=== PATIENT | male | born 1940 | race Caucasian/White ===

== ENCOUNTER → 2023-09-29 06:26 | Outpatient (REF) | payer MEDICARE, BC, SELFPAY ==
[2023-09-29 10:41] LABS: PSA, Total - Diagnostic 0.51 ng/ml (0.0-4.0)
== END ==
LOC: HWLAB 06:26
PROVIDERS: ATTENDING PHYSICIAN Specialist; FAMILY PHYSICIAN Student in an Organized Health Care Education/Training Program
DX: R97.20 Elevated prostate specific antigen [PSA] (principal)
CPT/HCPCS: 36415; 84153

== ENCOUNTER 2024-02-04 08:58 | Outpatient (REF) | payer MEDICARE, BC, SELFPAY ==
[2024-02-04] VITALS (7 sets, daily range): BP systolic 51–137; BP diastolic 68–76
== END 2024-02-04 13:50 | disposition home or self-care (01) ==
LOC: RAD 08:58
PROVIDERS: ATTENDING PHYSICIAN Orthopaedic Surgery Hand Surgery; FAMILY PHYSICIAN Student in an Organized Health Care Education/Training Program
DX: M25.512 Pain in left shoulder (principal); M54.12 Radiculopathy, cervical region
CPT/HCPCS: 62302; 72125

== ENCOUNTER 2024-02-24 12:10 | Inpatient (IN) | payer MEDICARE, BC, SELFPAY ==
[2024-02-24] VITALS (14 sets, daily range): BP systolic 116–165; BP diastolic 63–88; BMI 24.0; BMI 24.1
--- NOTE | 2024-02-24 08:57 | ED.GENMED ---
History of Present Illness
General
Chief Complaint: Abdominal Pain
Source: patient and ambulance crew
Nursing documentation reviewed up to this point in time: agreed with
History of Present Illness
History of Present Illness:
The patient is a 83-year-old man who arrives by ambulance with complaints of 2 to 3 hours of severe mid abdominal pain radiating into his back. Patient denies chest pain or shortness of breath. He denies fevers and chills. He denies difficulty
urinating. Patient reports he did normal bowel movement earlier today.
Past History
Past History
ED Past Medical History: HTN
ED Past Surgical History: Other (Hernia repair)
Social History
Tobacco: Non-smoker
Alcohol: None
Drug: None
Personal: Other
Living: other
Employment: Other
Family History
Family History: Other
Review of Systems
Review of Systems
Allergies reviewed?: Yes
Other source history: ambulance crew
All Other Systems: ROS reviewed and negative except as documented in HPI and ROS
Constitutional: Reports no symptoms
EENT: Reports no symptoms
Respiratory: Reports no symptoms
Cardiac: Reports no symptoms
ABD/GI: Reports abdominal pain
: Reports no symptoms
Musculoskeletal: Reports no symptoms
Skin: Reports no symptoms
Neurological: Reports no symptoms
Endocrine: Reports no symptoms
Hematologic/Lymphatic: Reports no symptoms
Psychiatric: Reports no symptoms
Phy Exam
Physical Exam
Physical Exam:
Physical Exam
General: Patient is conversational but appears extremely uncomfortable. Is moaning in pain
Neck: supple. no meningeal signs. normal psoterior pharynx
Heart: s1/s2 regular rate and rhythm, no murmur. equal radial pulses.
Lungs: no acute respiratory distress. clear bilaterally
Abdomen: Soft, mid abdominal tenderness. No pulsatile mass. Mild rebound and guarding
Neuro: alert and oriented. no focal neurological deficits
Skin: no rash
Psychiatric: well kept. interactive and cooperative
Extremities: no edema. no calf tenderness. negative homans. good distal pulses
Course
Orders/Labs/Results
Orders:
Orders
02/24/24 08:55
Urinalysis Reflex To Culture Urgent
Morphine Sulfate 4 mg IV NOW STA
Ondansetron Injectable [Zofran] 4 mg IV NOW STA
02/24/24 08:59
Complete Blood Count/With Diff Urgent
Comprehensive Metabolic Panel Urgent
Lipase Urgent
Troponin I Urgent
02/24/24 09:01
Electrocardiogram (*1) Urgent
Reason for Study: Abdominal Pain
EKG- Treatment ONCE
02/24/24 09:36
CT Chest/abd/pelvis Angio W/wo Urgent
Comment:
Reason For Exam: abdominal pain radiating into chest
HYDROmorphone [Dilaudid] 0.5 mg IV NOW STA
02/24/24 10:41
0.9% Sodium Chloride 1000 ml [Nss] 1,000 ml IV BOLUS
02/24/24 10:50
HYDROmorphone [Dilaudid] 0.5 mg IV NOW STA
02/24/24 10:53
LDH Urgent
Lactic Acid Urgent
02/24/24 10:58
MetroNIDAZOLE 500 MG/100 ML [Flagyl 500 mg] 100 ml IV NOW
Nursing to Place Non Medication Order As Directed
Physician Order: patient should be NPO
02/24/24 10:59
Vascular Surgery Consult Urgent
Consulting Provider: Steve Whyte III
Was physician already notified: Yes
Reason for consult: celiac artery dissection
02/24/24 11:43
Admit/Transfer Patient As Directed
Co-Sign Provider:
Level of Care: Inpatient admission
Assign to:: IMU- Intermediate Care
Physician / Group: Dr. Jesus Kuhn/Hospitalists
Diagnosis: Ischemic Bowel, Celiac Artery Dissection
Reason for Hospitalization: Ischemic Bowel, Celiac Artery Dissection
Expected length of stay greater than two midnights?: Yes
ELOS- Estimated Length of Stay in days: 4
I certify the patient meets the requirements for IP care: Yes
PRN Pain Medication Management As Directed
May give lesser potent ordered pain med per pt: Yes
preference::
Protocol:: Medication orders for pain may be administered in a
manner that supports deferring to patient preference
when the pt is:
- Requesting an ordered lesser potent pain medication.
Least to most potent pain medications are defined
as: acetaminophen < NSAID < tramadol < opioids
(morphine, oxycodone, hydromorphone).
- Requesting a lesser dose of the same medication IF
ORDERED.
- Requesting a less intrusive route of administration
if both routes are prescribed by the provider (PO <
IV).
02/24/24 11:48
Code Status As Directed
Resuscitation Status: Do not resuscitate
Reached after discussion with pt or family/Healthcare POA: Yes
Physician note:: Patient confirmed, at the time of admission on February 24, 2024, that he is DNR.
02/24/24 11:49
DNR Bracelet Application ONCE
02/24/24 11:56
ColoRectal Surgery Consult Routine
Consulting Provider: Garry Shore
Was physician already notified: Yes
Reason for consult: Suspected ischemic bowel
02/24/24 11:58
SURGICAL CONSULT Routine
Consulting Provider: Dale Judge
Was physician already notified: Yes
Reason for consult: Celiac Artery Dissection
02/24/24 12:16
Blood Culture Urgent
MONSERRAT Source: Blood/Venous
Specimen Description:
02/24/24 12:26
Blood Culture Routine
MONSERRAT Source: Blood/Venous
Specimen Description:
02/24/24 18:00
MetroNIDAZOLE 500 MG/100 ML [Flagyl 500 mg] 100 ml IV Q8H
Abnormal Lab Results
02/24/24
08:59
RBC 3.95 L 10^6/uL
(4.70-6.10)
Hct 37.0 L %
(39.0-52.0)
MCH 33.4 H pg
(27.0-31.0)
MPV 10.6 H fL
(7.4-10.4)
Glucose 126 H mg/dl
(70-99)
02/24/24 08:59
02/24/24 08:59
Vital Signs
Initial and Last Documented VS:
Initial Vital Signs
Temp Pulse Resp BP Pulse Ox
97.6 F 80 22 165/82 97
02/24/24 08:53 02/24/24 08:53 02/24/24 08:53 02/24/24 08:53 02/24/24 08:53
Last Documented Vital Signs
Temp Pulse Resp BP Pulse Ox
97.6 F 61 18 144/63 94
02/24/24 08:53 02/24/24 13:03 02/24/24 11:00 02/24/24 13:03 02/24/24 13:03
MDM/Problems Addressed
Differential Diagnosis Includes:
Small bowel obstruction, acute pancreatitis, aortic aneurysm rupture, acute appendicitis
MDM/Problems Addressed:
Patient presents with acute severe abdominal pain
Chronic conditions affecting care: Previous abdomnial surgery
Acute Exacerbation and/or Progression of Chronic Illness:
Given patient has a history of previous abdominal surgery, he is at increased risk of acute small bowel obstruction
Patient is acutely hypertensive, however, he is extremely uncomfortable and in pain.
Acute Exacerbation and/or Progression of Chronic Illness: Previous abdomnial surgery
*Radiology
Radiology exam reviewed: radiology read reviewed
*Pulse Oximetry
Patient hypoxic: no
*EKG
Interpreted by ED Provider?: Yes
Interpretation: abnormal
Comparison EKG: changes noted
Rate: normal
Rhythm: sinus
[place]: normal axis
Interval: normal interval
QRS Pattern: right bundle branch block
Ischemia: non-specific ST changes
*Alumni Coordinator Interpretation
Rate: normal
Interpretation: normal
Rhythm: sinus
*Critical Care Note
Total Time (30-74mins, 75-104mins- exclusive of procedures): 53 min
comment:
53 minutes critical care given to the patient including reviewing his blood work, CT report with radiology, and discussing the case with vascular surgery, the hospitalist and counseling the patient
Data Reviewed
Review of Other/Old Records Reveals: Radiology Studies (CT abdomen pelvis reviewed from 2020 which showed that patient had no abdominal aortic aneurysm seen)
Source: patient and ambulance crew
Patient Management
Discussion with other providers: Hospitalist and Other (Vascular surgery, Dr. Whyte. Dr. Judge from general surgery made aware of patient's condition and CT)
Escalation/DeEscalation of care consider admission/obs:
Vascular surgery came to see the patient at bedside. Decision made to treat conservatively and monitor closely. Patient will be started on IV antibiotics and IV fluids.
ED Attending Note
-
Portions of this chart may have been created with voice recognition software.� Occasional wrong word or��sound alike� substitutions may have occurred due to the inherent limitations of voice recognition software.
Discharge Plan
Departure
Patient Disposition: Admit
Date of Disposition: 02/24/24
Time of Disposition: 10:39
Admit to: Med/Surg
Presentation/result/management discussed w/ accepting MD/DO: Hospitalist
Patient with high blood pressure during this ER visit?: Yes
Condition: Fair
Covid-19: Not Applicable
Discharge Problem:
Acute ischemia of small intestine, Celiac artery dissection
Interventions
Interventions:
*Risk Screen - Suicide Last Done: 02/24/24 08:56
*General Assessment Last Done: 02/24/24 08:56
*Neglect/Abuse Screening Last Done: 02/24/24 08:56
WI-[id number]-[id number] Assessment Last Done: 02/24/24 09:07
[2024-02-24] MEDS: ZOFRAN 4 MG IV (09:01)
[2024-02-24] MEDS: MORPHINE SULFATE 4 MG IV ×2 (09:03→22:43)
[2024-02-24 09:10] LABS: % Basophils 0.2 % (0-2); % Eosinophils 0.5 % (0-6); % Immature Granulocytes 0.2 % (0-0.5); % Lymphocytes 29.4 % (20.5-51.1); % Monocytes 5.4 % (1.7-9.3); % Neutrophils 64.3 % (42.2-75.2); Absolute Lymphocytes 1.8 10^3/uL (1.2-3.4); Absolute Monocytes 0.3 10^3/uL (0.1-0.6); Hemoglobin 13.2 g/dL (13.0-18.0); Mean Corp Hgb Conc. 35.7 g/dL (33.0-37.0); Mean Corpuscular Hgb 33.4 pg (27.0-31.0); Mean Corpuscular Volume 93.7 fL (80.0-94.0); Mean Platelet Volume 10.6 fL (7.4-10.4); Nucleated Red Blood Cells % 0 % (-); Platelet Count 168 10^3/uL (130-400); Red Blood Cell Count 3.95 10^6/uL (4.70-6.10); Red Cell Dist. Width 13.5 % (11.5-14.5); White Blood Cell Count 6.2 10^3/uL (4.8-10.8)
[2024-02-24 09:24] LABS: ALT (SGPT) 26 U/L (0-50); AST (SGOT) 31 U/L (17-59); Albumin 4.3 g/dl (3.5-5.0); Alkaline Phosphatase 58 U/L (38-126); Blood Urea Nitrogen 19 mg/dl (9-20); Calcium 9.6 mg/dl (8.4-10.2); Carbon Dioxide 26 mmol/L (22-30); Chloride 105 mmol/L (98-107); Estimated Creatinine Clearance 62 ml/min; Glucose 126 mg/dl (70-99); Lipase 68 U/L (23-300); Potassium 4.1 mmol/L (3.5-5.1); Sodium 137 mmol/L (135-145); Total Bilirubin 1.3 mg/dl (0.2-1.3); Total Protein 7.1 g/dl (6.3-8.2); eGFR > 60.00
[2024-02-24 09:35] LABS: Troponin I < 0.012 ng/ml
[2024-02-24] MEDS: DILAUDID 0.5 MG IV ×2 (10:00→11:00)
[2024-02-24] MEDS: NSS 1000 IV (10:59)
[2024-02-24] MEDS: FLAGYL 500 MG 100 IV ×2 (11:04→17:03)
[2024-02-24 11:13] LABS: LDH 156 U/L (120-246); Lactic Acid 0.8 mmol/L (0.7-2.0)
--- NOTE | 2024-02-24 11:27 | CON.GS ---
Medical History
-
Chief Complaint: Abdominal pain
History of Present Illness:
Patient is a 83 yo M with a PMH of HTN, HLD, BPH, s/p open LEFT inguinal hernia repair as a teenager c/b recurrence s/p robotic repair with mesh by Dr. Ramires in 06/2020. Mr. Murphy presents with acute onset severe epigastric abdominal pain. He
states that shortly after breakfast this morning he acutely developed severe stabbing epigastric abdominal pain radiating to his back. Severity of symptoms and persistence over a few hours prompted presentation to the ED. Currently he states that
his pain is improved with IV pain medications. He denies any nausea or vomiting. She reports passing flatus and had a small little nonbloody bowel movement this morning. Denies any similar episodes of pain or discomfort. He denies any dizziness
or lightheadedness. He denies chest pain or shortness of breath. He states that his blood pressures have been overall well-controlled, though does state that he was recently started on Amlodipine by his PCP for improved control.
Past Medical History
Past Medical History: HTN, Hypercholesterolemia and Other (BPH)
Past Surgical History: Hernia Repair (Open LIH c/b recurrence s/p robotic repair with mesh in 06/[address] Ramires)
Social History
Tobacco: Non-Smoker
Alcohol: Occasional (2-3x per week)
Drug: None
Personal:
Living: With Family
Family History
Family History: Reviewed & Noncontributory
Allergies / Home Medications
Allergy/AdvReac Type Severity Reaction Status Date / Time
Penicillins Allergy Rash Verified 02/24/24 08:52
�Medication �Instructions �Recorded �Confirmed �Type
aspirin 81 mg tablet,delayed 81 mg PO DAILY Blood clot 08/05/12 02/24/24 History
release prevention/tx
finasteride 5 mg tablet 5 mg PO DAILY Urinary issue 08/05/12 02/24/24 History
lisinopril 20 mg tablet 20 mg PO DAILY Blood pressure 08/05/12 02/24/24 History
simvastatin 20 mg tablet 20 mg PO HS High cholesterol 08/05/12 02/24/24 History
cyanocobalamin (vitamin B-12) 1,000 mcg PO Q48H Supplement 01/08/20 02/24/24 History
1,000 mcg tablet
acetaminophen 325 mg tablet 650 mg PO Q6HPRN PRN mild pain 02/04/24 02/24/24 History
(Tylenol)
amlodipine 5 mg tablet 5 mg PO DAILY 02/04/24 02/24/24 History
Review of Systems
-
A 10 point review of systems was completed, and was negative except as per HPI.
Physical Exam
Vital Signs
Temp Pulse Resp BP Pulse Ox
97.6 F 65 18 128/70 97
02/24/24 08:53 02/24/24 11:00 02/24/24 11:00 02/24/24 11:00 02/24/24 11:00
02/23/24 02/24/24 02/25/24
06:59 06:59 06:59
Actual Weight 71.5 kg
Body Mass Index (BMI) 24.0
Lab Results
02/24/24 08:59
02/24/24 08:59
WBC 6.2 10^3/uL (4.8-10.8) 02/24/24 08:59
Hgb 13.2 g/dL (13.0-18.0) 02/24/24 08:59
Hct 37.0 % (39.0-52.0) L 02/24/24 08:59
Plt Count 168 10^3/uL (130-400) 02/24/24 08:59
Abs Immat Gran (auto) 0.0 10^3/uL (0-0.05) 02/24/24 08:59
Neutrophils % 64.3 % (42.2-75.2) 02/24/24 08:59
Physical Exam
General: Well Developed, Well Nourished and No Apparent Distress
HEENT: Normocephalic and Anicteric
Respiratory: Non Labored Respirations
Cardiac: Regular Rhythm
GI: Soft, Non Distended, Tender (Epigastrium), Incisions (Well healed) and Other (Non-peritoneal (no rebound, guarding, or tenderness with percussion))
Skin: Warm and Dry
Neuro: Nonfocal/Grossly Intact
Data Reviewed
-
CT Scan: Image Personally Visualized and interpreted and Report Reviewed by me
Labs: Labs Reviewed by me
Assessment / Plan
-
Patient is an 83 yo M p/w acute onset severe epigastric abdominal pain
Given the location and clinical history most likely this is related to his celiac artery dissection. Vascular surgery consult noted. Mild dissection with no inhibited flow distally. Distribution of small bowel should not be affected by vascular
compromise to the celiac artery. SMA appears to be widely patent and without embolus, stenosis, or dissection. Small bowel demonstrates wall thickening and inflammatory stranding without pneumatosis or free air. Abdominal exam without diffuse
peritonitis. Hemodynamically stable, afebrile, normal WBC and lactate. Recommend medical management at this time with NPO, IVF, and Zosyn for translocation prophylaxis. Serial abdominal exams. If any clinical deterioration then would recommend
surgical exploration; diagnostic laparoscopy, possible exploratory laparotomy, with possible bowel resection. All questions answered.
-- NPO, IVF
-- Zosyn
-- Serial abdominal exams, close monitoring in IMU
-- Vascular Surgery consult noted
--- NOTE | 2024-02-24 11:35 | CON.VAS ---
Consultation
Consultation Request
Date/Time Consultation Requested: February 24, 2024 AM
Date/Time Consultation Performed: February 24, 2024 11:15 AM
Requesting Provider: ED
Performing Provider: Dr. Whyte
Reason for Consultation: Abdominal Pain
Medical History
-
Chief Complaint: Severe Epigastric ABD Pain
History of Present Illness:
83 yo Male with relevant PMHx of HTN and Hypercholesterolemia and notable PSHx of Open L-Inguinal hernia repair with reoccurrence and secondary robotic repair, who presented to the ED today with acute onset of severe Focal Epigastric Abdominal pain
that radiates posteriorly straight to his back, at the level of the epigastrium. Pt states pain started suddenly around breakfast this morning and has persisted since, prompting him to present to the ED today. At this time, pt reports mild
improvement of his pain following IV pain medications, when compared to the initial presentation at the onset.
Upon ROS pt denies any previous episodes of similar pain or discomfort in the past, no recent systemic symptoms, traumas, Chest pain/discomfort, SOB, previous bloody BM's or Symptoms at this time.
Past Medical History
Past Medical History: HTN
Allergies / Home Medications
Allergy/AdvReac Type Severity Reaction Status Date / Time
Penicillins Allergy Rash Verified 02/24/24 08:52
�Medication �Instructions �Recorded �Confirmed �Type
aspirin 81 mg tablet,delayed 81 mg PO DAILY Blood clot 08/05/12 02/24/24 History
release prevention/tx
finasteride 5 mg tablet 5 mg PO DAILY Urinary issue 08/05/12 02/24/24 History
lisinopril 20 mg tablet 20 mg PO DAILY Blood pressure 08/05/12 02/24/24 History
simvastatin 20 mg tablet 20 mg PO HS High cholesterol 08/05/12 02/24/24 History
cyanocobalamin (vitamin B-12) 1,000 mcg PO Q48H Supplement 01/08/20 02/24/24 History
1,000 mcg tablet
acetaminophen 325 mg tablet 650 mg PO Q6HPRN PRN mild pain 02/04/24 02/24/24 History
(Tylenol)
amlodipine 5 mg tablet 5 mg PO DAILY 02/04/24 02/24/24 History
Review of Systems
-
History Source: Patient
All other systems: Negative unless noted
Constitutional: Reports No Symptoms
EENT: Reports No Symptoms
Respiratory: Reports No Symptoms
Cardiac: Reports No Symptoms
Vascular: Reports Other (Focal Epigastric Abdominal pain radiating towards back)
Abdomen/GI: Reports Abdominal Pain, Pain and Other (Focal Epigastric Abdominal pain radiating towards back)
Physical Exam
Vital Signs
Temp Pulse Resp BP Pulse Ox
36.4 C 65 18 128/70 97
02/24/24 08:53 02/24/24 11:00 02/24/24 11:00 02/24/24 11:00 02/24/24 11:00
Lab Results
02/24/24 08:59
02/24/24 08:59
Troponin I < 0.012 ng/ml 02/24/24 08:59
Physical Exam
General: Well Developed, Well Nourished, Pain and Other (Mildly Uncomfortable appareance)
HEENT: Normocephalic and Anicteric
Respiratory: Non Labored Respirations
GI: Soft, Non Distended and Tender (siginificant TTP Localized to the Epigastrium area)
Skin: Warm
Neuro: Awake, Alert, Oriented and AO x 3
Psych: Other (Milddly Uncomfortable appereance)
Assessment / Plan
-
ASSESSMENT:
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
PLAN:
Conservative/medical management of celiac artery dissection recommended from V.S. standpoint
NPO
Continue supportive IV fluids for Hydration
Management/Control of BP
Anti-PLT Therapy / 81mg ASA
Watchful waiting and close monitoring
Data Reviewed
-
CT Scan: Image Personally Visualized and interpreted, Discussed with Physician and Discussed with Patient
Critical Care Time (in minutes): ~30 min
Total Time Spent with Patient (in minutes): ~15 min
[2024-02-24] MEDS: MAXIPIME 2000 MG IV ×2 (12:29→22:43)
[2024-02-24] MEDS: STERILE WATER FOR INJECTION 10 ML IV ×2 (12:29→22:43)
--- NOTE | 2024-02-24 13:36 | HPS.HSE ---
Family Physician
-
Family Physician: Marianna Villar PA-C
Chief Complaint
-
Abdominal Pain
History of Present Illness
83 y/o male with past medical history of hypertension and hyperlipidemia, presented with abdominal pain this morning after eating breakfast. Patient said he developed mild pain in his upper abdomen which then got progressively worse and radiated to
his back. His last bowel movement was this morning and he denied any fever, nausea, vomiting, dizziness or any other symptoms.
Medical History
Past Medical History
Past Medical History: Reports Other (As per HPI above)
Past Surgical History: Reports Orthopedic and Other (Eye cataract surgery)
Social History
Tobacco: Former Smoker
Alcohol: Occasional
Drug: None
Family History
Family History: Other (Heart Disease. Alzheimer's Dementia.)
Allergies / Home Medications
Allergies reflects when Allergies were last updated in [facility].
Home Medications with original date entered in [facility]
Allergy/Medication List:
Allergies
Allergy/AdvReac Type Severity Reaction Status Date / Time
Penicillins Allergy Rash as a Verified 02/24/24 12:55
child -
tolerated
cefazolin
Home Medications
aspirin 81 mg tablet,delayed release 81 mg PO DAILY Blood clot prevention/tx 08/05/12
finasteride 5 mg tablet 5 mg PO DAILY prostate issue 08/05/12
lisinopril 20 mg tablet 20 mg PO DAILY Blood pressure 08/05/12
simvastatin 20 mg tablet 20 mg PO HS High cholesterol 08/05/12
cyanocobalamin (vitamin B-12) 1,000 mcg tablet 1,000 mcg PO Q48H Supplement 01/08/20
acetaminophen 325 mg tablet (Tylenol) 650 mg PO Q6HPRN PRN mild pain 02/04/24
amlodipine 5 mg tablet 5 mg PO DAILY Blood Pressure 02/04/24
Review of Systems
-
A 12 point ROS was completed and negative except as noted: Yes
Physical Exam
Vital Signs
Vital Signs
Temp Pulse Resp BP Pulse Ox
97.6 F 61 18 144/63 94
02/24/24 08:53 02/24/24 13:03 02/24/24 11:00 02/24/24 13:03 02/24/24 13:03
Physical Exam
General: No Apparent Distress
HEENT: NormoCephalic
Respiratory: Clear
Cardiac: S1/S2 and Regular Rhythm
GI: Soft, Normal Bowel Sounds and Tender (epigastric)
Musculoskeletal: No Cyanosis and No Edema
Skin: Warm and Dry
Neuro: Awake, Alert and AO x 3
Psych: Calm and Intact Judgment/Insight
Laboratory Results
-
02/24/24 08:59
02/24/24 08:59
Laboratory Results
Lactic Acid 0.8 mmol/L (0.7-2.0) 02/24/24 10:53
Total Bilirubin 1.3 mg/dl (0.2-1.3) 02/24/24 08:59
AST 31 U/L (17-59) 02/24/24 08:59
ALT 26 U/L (0-50) 02/24/24 08:59
Alkaline Phosphatase 58 U/L (38-126) 02/24/24 08:59
Troponin I < 0.012 ng/ml 02/24/24 08:59
Lipase 68 U/L (23-300) 02/24/24 08:59
Impression/Plan
-
Assessment/Plan
Presentation with Abdominal Pain
Concern for Bowel Ischemia on CT Imaging
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
-Monitor in IMU
-Vascular surgery and colorectal surgery on board, appreciate evaluation and recommendations -- watchful waiting for now
-NPO
-LR IV fluids
-Cefepime and Flagyl
-Blood consent obtained in the ER, in case patient needs a blood transfusion
HTN - monitor, holding all PO meds at this time due to strict NPO
HLD
BPH
Status post open LEFT inguinal hernia repair as a teenager c/b recurrence s/p robotic repair with mesh by Dr. Ramires in 06/2020
DVT PPx: SCDs
Code Status: DNR (confirmed by patient at the time of admission)
[2024-02-24] MEDS: LR 1000 IV (17:04)
--- NOTE | 2024-02-24 21:02 | PTCARENOTE ---
Received pt at change of shift. Drowsy but easily arousable. Pt c/o pain in epigastric area 09/06 but is not consistent. Also c/o pain in left shoulder from known herniated disc that is supposed to be handled outpatient. LR running at 100 ml/hr.
NPO. Able to walk to bathroom with minimal assistance. Now resting in bed with call linton in reach.
[2024-02-24 21:18] LABS: Urine Albumin Negative (Neg - Trace); Urine Bilirubin Negative (Negative); Urine Character Clear (Clear); Urine Color Yellow; Urine Glucose Negative (Negative); Urine Ketone Negative (Negative); Urine Leukocyte Negative (Negative); Urine Nitrite Negative (Negative); Urine Occult Blood Negative (Negative); Urine Urobilinogen Negative (Neg - 1+)
--- NOTE | 2024-02-24 22:30 | PTCARENOTE ---
Pt c/o pain increasing to a 6/10 from 2/10. Diffuse throughout abdomen; tender to palpation. Absent bowel sounds. Notified STAFFING AND SCHEDULING COORDINATOR. STAFFING AND SCHEDULING COORDINATOR at bedside to evaluate patient.
--- NOTE | 2024-02-24 22:39 | W.PN.UPDATE ---
Update Note
Progress Note Update
per nursing patient c/o 01/04 abdominal pain, no bowel sound. Upon visit, patient reports diffused abdominal pain but not worse than initial pain that had him come to the ER and no flatus. Abdomen soft, tender to palpation, no guarding, hypoactive.
Rx Dilaudid for severe and morphine to mild/moderate pain. Nursing to continue to monitor.
[2024-02-25] VITALS (11 sets, daily range): BP systolic 117–145; BP diastolic 56–111
[2024-02-25] MEDS: FLAGYL 500 MG 100 IV ×2 (03:44→10:12)
[2024-02-25] MEDS: LR 1000 IV ×2 (03:45→14:35)
[2024-02-25 05:16] LABS: % Basophils 0.3 % (0-2); % Immature Granulocytes 0.3 % (0-0.5); % Lymphocytes 28.8 % (20.5-51.1); % Monocytes 5.8 % (1.7-9.3); % Neutrophils 63.8 % (42.2-75.2); Absolute Eosinophils 0.1 10^3/uL (0-0.7); Absolute Lymphocytes 1.8 10^3/uL (1.2-3.4); Absolute Monocytes 0.4 10^3/uL (0.1-0.6); Hematocrit 36.4 % (39.0-52.0); Hemoglobin 12.6 g/dL (13.0-18.0); Mean Corp Hgb Conc. 34.6 g/dL (33.0-37.0); Mean Corpuscular Volume 98.1 fL (80.0-94.0); Mean Platelet Volume 10.8 fL (7.4-10.4); Nucleated Red Blood Cells % 0 % (-); Platelet Count 147 10^3/uL (130-400); Red Blood Cell Count 3.71 10^6/uL (4.70-6.10); Red Cell Dist. Width 13.4 % (11.5-14.5); White Blood Cell Count 6.2 10^3/uL (4.8-10.8)
[2024-02-25 06:06] LABS: Blood Urea Nitrogen 13 mg/dl (9-20); Calcium 9.5 mg/dl (8.4-10.2); Carbon Dioxide 26 mmol/L (22-30); Chloride 107 mmol/L (98-107); Estimated Creatinine Clearance 70 ml/min; Glucose 100 mg/dl (70-99); Magnesium 1.6 mg/dl (1.6-2.3); Potassium 4.3 mmol/L (3.5-5.1); Sodium 137 mmol/L (135-145); eGFR > 60.00
--- NOTE | 2024-02-25 07:18 | PTCARENOTE ---
Pt AAOx3, SB on monitor VS WNL no co at this time, pt states he passed gas. Pt walked to BR to brush teeth. NO BS at this time. Remains NPO for poss surgery.
--- NOTE | 2024-02-25 07:37 | CON.CAR ---
Addendum entered and electronically signed by Serafin Jordan MD 02/25/24 15:48:
I saw and examined the patient.
The Varying Exceptional[employer] Teacher's note was reviewed and I agree with the note.
Comment:
GEN: No distress, awake, Ox3
HEENT: supple, anicteric, mmm
LUNGS: CTA, no wheezes/rales
CV: Reg, S1/S2, 1/6 syst LSB, no gallop
ABD: soft, BS+, mild tenderness
EXT: No edema
NEURO: Gross non-focal
SKIN: No rash
Plan:
He has a past medical history of hypertension, hyperlipidemia and BPH who presents with significant epigastric and abdominal pain. 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 This is being treated conservatively for now. On telemetry
the patient was found to have sinus bradycardia with heart rates occasionally in the 40s at night. Baseline heart rate is in the 60s. He overall feels well. He denies any chest pain, shortness of breath, dizziness, lightheadedness or syncope.
Check echocardiogram and TSH. Continue to follow on telemetry.
At this point his sinus bradycardia requires no treatment.
Continue management of celiac artery dissection. BP currently stable
Original Note:
Consultation
Consultation Request
Date/Time Consultation Performed: 02/25/24
Requesting Provider: Dr. Kuhn
Performing Provider: Bouchra Pablo PA-C for Dr. Jordan
Reason for Consultation: bradycardia
Medical History
-
Chief Complaint: abd pain
History of Present Illness:
Patient is an 83 yo M with PMH of HLD, HTN, BPH who presented to due to sudden onset of abd pain yesterday morning. He reports it initially was located near his umbilicus however over the next hour moved upward toward his epigastrum and wrapped
around both sides of his ribs. He came to [facility] for evaluation. 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 Plan at this time is for conservative mgmt as able. Cardiology
consulted as overnight patient noted to have asymptomatic bradycardia with HRs into 40s at times. He reports at baseline his HR is normally in 60s. Last echo from 2019 with normal EF. Denies CP, SOB, palpitations, lightheadedness.
PMH:
HTN
HLD
BPH
Past Medical History
Past Medical History: Other (in HPI)
Social History
Tobacco: Non-Smoker
Alcohol: Occasional
Personal:
Living: With Family
Employment: Retired
Family History
Family History: CAD (MD in father at age 52)
Allergies / Home Medications
Allergy/AdvReac Type Severity Reaction Status Date / Time
Penicillins Allergy Rash as a Verified 02/24/24 12:55
child -
tolerated
cefazolin
�Medication �Instructions �Recorded �Confirmed �Type
aspirin 81 mg tablet,delayed 81 mg PO DAILY Blood clot 08/05/12 02/24/24 History
release prevention/tx
finasteride 5 mg tablet 5 mg PO DAILY prostate issue 08/05/12 02/24/24 History
lisinopril 20 mg tablet 20 mg PO DAILY Blood pressure 08/05/12 02/24/24 History
simvastatin 20 mg tablet 20 mg PO HS High cholesterol 08/05/12 02/24/24 History
cyanocobalamin (vitamin B-12) 1,000 mcg PO Q48H Supplement 01/08/20 02/24/24 History
1,000 mcg tablet
acetaminophen 325 mg tablet 650 mg PO Q6HPRN PRN mild pain 02/04/24 02/24/24 History
(Tylenol)
amlodipine 5 mg tablet 5 mg PO DAILY Blood Pressure 02/04/24 02/24/24 History
Review of Systems
-
History Source: Patient
All other systems: Negative unless noted
Physical Exam
Vital Signs
Temp Pulse Resp BP Pulse Ox
98.2 F 47 12 145/70 96
02/25/24 03:12 02/25/24 06:00 02/25/24 06:00 02/25/24 06:00 02/25/24 06:00
Lab Results
02/25/24 04:49
02/25/24 04:49
Troponin I < 0.012 ng/ml 02/24/24 08:59
Physical Exam
General: No Apparent Distress, Comfortable and Other (younger than stated age)
HEENT: Normocephalic, Anicteric and Moist Mucous Membranes
Respiratory: Clear and Non Labored Respirations
Cardiac: S1/S2 and Regular Rhythm
GI: Soft, Non Tender, Non Distended and Normal Bowel Sounds
Musculoskeletal: No Clubbing, No Cyanosis and Edema (trace of B/L LE)
Skin: Warm and Dry
Neuro: AO x 3
Impression / Plan
-
Primary Road Advisor: last seen by Dr. Rush in 2019
Assessment:
Presentation with abd pain
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
Sinus bradycardia
HTN
HLD
BPH
ECHO 2019: normal EF, normal regional wall motion, MAC, mild MR, mildly dilated aortic root, sinus of valsalva 4.0cm
Plan:
-Patient presents with abd pain and by imaging with evidence of small celiac artery dissection. plan for conservative mgmt per vascular and general surgery at this time
-cardiology consulted due to bradycardia noted on tele overnight. HR at times into 40s
-appears asymptomatic. no pauses or av block noted on review of tele overnight
-last echo from 2019 with results as above. will plan to repeat
-check TSH
-d/w nursing
Data Reviewed
-
EKG: Tracing Personally Visualized and interpreted
CT Scan: Report Reviewed by me
Medical Tests (Nuc Med, Echo etc): Report Reviewed by me
Labs: Labs Reviewed by me
Old Records: Reviewed
--- NOTE | 2024-02-25 09:24 | W.PN.VS ---
Today's Communication / Plan
-
Seen and assessed with Dr. Whyte
Assessment/Plan
-
83-year-old male with celiac artery dissection, abdominal pain(resolved at this time)
Plan:
-Continue medical management
-Follow-up in 1 month with CTA abdomen/pelvis in our office
Subjective Data
-
Date of Service: February 25, 2024
Patient seen at bedside this a.m. Dr. Whyte. Patient states he has no pain at this time.
Objective Data
-
Vital Signs
Temp Pulse Resp BP Pulse Ox
98.2 F 47 12 145/70 96
02/25/24 03:12 02/25/24 06:00 02/25/24 06:00 02/25/24 06:00 02/25/24 06:00
Intake and Output
02/24/24 02/25/24 02/26/24
06:59 06:59 06:59
Intake Total 1300 / 1300
Balance 1300 / 1300
Intake:
IV fluids (Total) 1200 / 1200
IV piggybacks 100 / 100
Other:
Number of approximated MODERATE 2
amounts of urine
Lab Results
02/25/24 04:49
02/25/24 04:49
Calcium 9.5 mg/dl (8.4-10.2) 02/25/24 04:49
Magnesium 1.6 mg/dl (1.6-2.3) 02/25/24 04:49
Total Bilirubin 1.3 mg/dl (0.2-1.3) 02/24/24 08:59
AST 31 U/L (17-59) 02/24/24 08:59
ALT 26 U/L (0-50) 02/24/24 08:59
Alkaline Phosphatase 58 U/L (38-126) 02/24/24 08:59
Total Protein 7.1 g/dl (6.3-8.2) 02/24/24 08:59
Albumin 4.3 g/dl (3.5-5.0) 02/24/24 08:59
Physical Exam
-
AAOx3
No tachypnea
No tachycardia
Abdomen soft, nontender, nondistended, denies pain at this time
Bilateral feet warm and pink
Vital signs stable
[2024-02-25 10:39] LABS: TSH Reflex To Free T4 4.42 uIU/ml (0.47-4.68)
--- NOTE | 2024-02-25 12:05 | W.PN.GS2 ---
Today's Communication / Plan
-
Trial clears
Assessment / Plan
-
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
AFVSS, abd exam benign
Labs unremarkable
Vascular surgery plan is for expectant mgmt
GS plan is the same
Adv to CLD
Serial abd exams
DVT ppx
Defer need for A/C to Vascular Surgery, OK from GS standpoint if needed
Will follow
Subjective Data
-
Date of Service: February 25, 2024
AFVSS, pain resolved, denies n/v
Objective Data
-
Intake and Output
02/24/24 02/25/24 02/26/24
06:59 06:59 06:59
Intake Total 1300 / 1300
Balance 1300 / 1300
Intake:
IV fluids (Total) 1200 / 1200
IV piggybacks 100 / 100
Other:
Number of approximated MODERATE 2 2
amounts of urine
Vital Signs
Temp Pulse Resp BP Pulse Ox
97.6 F 47 12 145/70 96
02/25/24 07:31 02/25/24 06:00 02/25/24 06:00 02/25/24 06:00 02/25/24 06:00
Lab Results
02/25/24 04:49
02/25/24 04:49
Calcium 9.5 mg/dl (8.4-10.2) 02/25/24 04:49
Magnesium 1.6 mg/dl (1.6-2.3) 02/25/24 04:49
Total Bilirubin 1.3 mg/dl (0.2-1.3) 02/24/24 08:59
AST 31 U/L (17-59) 02/24/24 08:59
ALT 26 U/L (0-50) 02/24/24 08:59
Alkaline Phosphatase 58 U/L (38-126) 02/24/24 08:59
Total Protein 7.1 g/dl (6.3-8.2) 02/24/24 08:59
Albumin 4.3 g/dl (3.5-5.0) 02/24/24 08:59
Physical Exam
-
Gen: NAD, nontoxic
Abd: soft, nt, nd
[2024-02-25] MEDS: MAXIPIME 2000 MG IV (12:44)
[2024-02-25] MEDS: STERILE WATER FOR INJECTION 10 ML IV (12:45)
--- NOTE | 2024-02-25 13:19 | PTCARENOTE ---
Pt tolerating water and hot tea, also had small BM and gas
--- NOTE | 2024-02-25 16:03 | W.PN.HOSP.TC ---
Today's Communication/Plan
-
Transfer to tele
Stop antibiotics
PT/OT
If patient remains stable going into tomorrow and can tolerate an advanced diet tomorrow, then can possibly discharge tomorrow
Assessment / Plan
Assessment / Plan
Physical Exam
General: No Apparent Distress
HEENT: Normocephalic
Respiratory: Clear to Auscultation Bilaterally
Cardiac: S1/S2 and Regular Rhythm
GI: Soft, Normal Bowel Sounds and Minimally Tender (epigastric)
Musculoskeletal: No Cyanosis and No Edema
Skin: Warm and Dry
Neuro: Awake, Alert and AO x 3
Psych: Calm and Intact Judgment/Insight

Assessment/Plan
Presentation with Abdominal Pain
Concern for Bowel Ischemia on CT Imaging
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
-Transfer to tele
-Vascular surgery and colorectal surgery on board, appreciate evaluation and recommendations -- watchful waiting for now
-Clear Liquids Diet for now, as per surgery
-LR IV fluids
-Discussed on 02/25/24 with vascular surgery and general surgery regarding need for antibiotics and from their standpoints, there is no need for antibiotics. Discontinued Cefepime and Flagyl.
-Okay to do Aspirin as per vascular surgery
-Blood consent obtained in the ER, in case patient needed a blood transfusion
Sinus Bradycardia
-Baseline heart rate in the 60s, but was in the 40s on 02/24/24
-Continue cardiac monitoring/telemetry monitoring in IMU
-Echo
-TSH
-Appreciate cardiology
-Follow-up with cardiology outpatient
HTN - Resume home medications
HLD
BPH
Status post open LEFT inguinal hernia repair as a teenager c/b recurrence s/p robotic repair with mesh by Dr. Ramires in 06/2020
DVT PPx: SCDs
Code Status: DNR (confirmed by patient at the time of admission)
Anticipated Discharge: Within 24 hours
Subjective/Interval History
-
Date of Service: February 25, 2024
Patient was seen and examined. He denied any pain and reported feeling better.
Objective Data
-
Labs:
Laboratory Results
02/25/24
04:49
WBC 6.2
Hgb 12.6 L
Hct 36.4 L
Plt Count 147
Sodium 137
Potassium 4.3
Chloride 107
Carbon Dioxide 26
BUN 13
Creatinine 0.8
Glucose 100 H
Calcium 9.5
Vital Signs:
Vital Signs
Temp Pulse Resp BP Pulse Ox
98.5 F 72 12 126/78 98
02/25/24 11:11 02/25/24 12:00 02/25/24 12:00 02/25/24 12:00 02/25/24 12:00
I&O
02/24/24 02/25/24 02/26/24
06:59 06:59 06:59
Intake Total 1300 / 1300
Balance 1300 / 1300
--- NOTE | 2024-02-25 16:09 | CM ---
Patient with Dx abdominal pain, acute celiac artery dissection. Room air. Clear liquids. Receiving IVF, IV Abx.
Met with patient and Michaela;
the patient resides with his in a split level house with 3 [address] and 6 + [address]
The patient has been independent in ADLs and ambulation.
He states he has been having neck and shoulder pain with restricted ROM of affected arm, and stated he is scheduled for an outpatient epidural injection on Thursday 03/[address] Kenny.
The patient has no DME.
Prior [facility].
No prior SNF.
PCP - Marianna Villar
Pharmacy - [facility]
No CM d/c needs identified.
Plan home.
[2024-02-25] MEDS: NORVASC 5 MG PO (16:53)
[2024-02-25] MEDS: ZESTRIL 20 MG PO (16:54)
[2024-02-25] MEDS: PROSCAR 5 MG PO (16:54)
[2024-02-25] MEDS: ASPIR LOW (ENTERIC COATED) 81 MG PO (16:54)
[2024-02-25] MEDS: LIPITOR 10 MG PO (20:51)
[2024-02-26] VITALS (8 sets, daily range): BP systolic 90–141; BP diastolic 46–95
[2024-02-26] MEDS: LR 1000 IV (02:28)
--- NOTE | 2024-02-26 03:28 | PTCARENOTE ---
Pt AAOx3, SR-SB on monitor. Pt able to ambulate to BSC to void throughout the night with assist x1. Denies pain, but does grimace and groan when getting into bed, pt states d/t L shoulder. Hypoactive BS, but pt states he is able to pass gas.
[2024-02-26 04:35] LABS: % Basophils 0.2 % (0-2); % Eosinophils 0.6 % (0-6); % Immature Granulocytes 0.2 % (0-0.5); % Lymphocytes 25.2 % (20.5-51.1); % Monocytes 6.8 % (1.7-9.3); Absolute Lymphocytes 1.6 10^3/uL (1.2-3.4); Absolute Monocytes 0.4 10^3/uL (0.1-0.6); Absolute Neutrophils 4.1 10^3/uL (1.4-6.5); Hematocrit 35.3 % (39.0-52.0); Hemoglobin 12.6 g/dL (13.0-18.0); Mean Corp Hgb Conc. 35.7 g/dL (33.0-37.0); Mean Corpuscular Volume 95.1 fL (80.0-94.0); Mean Platelet Volume 10.9 fL (7.4-10.4); Nucleated Red Blood Cells % 0 % (-); Platelet Count 135 10^3/uL (130-400); Red Blood Cell Count 3.71 10^6/uL (4.70-6.10); Red Cell Dist. Width 13.2 % (11.5-14.5); White Blood Cell Count 6.2 10^3/uL (4.8-10.8)
[2024-02-26 05:45] LABS: Blood Urea Nitrogen 10 mg/dl (9-20); Calcium 9.6 mg/dl (8.4-10.2); Carbon Dioxide 25 mmol/L (22-30); Chloride 106 mmol/L (98-107); Estimated Creatinine Clearance 80 ml/min; Glucose 92 mg/dl (70-99); Potassium 3.5 mmol/L (3.5-5.1); Sodium 137 mmol/L (135-145); eGFR > 60.00
[2024-02-26] MEDS: PROSCAR 5 MG PO (08:37)
[2024-02-26] MEDS: ASPIR LOW (ENTERIC COATED) 81 MG PO (08:37)
[2024-02-26] MEDS: ZESTRIL 20 MG PO (08:37)
[2024-02-26] MEDS: VITAMIN B-12 1000 MCG PO (08:37)
[2024-02-26] MEDS: NORVASC 5 MG PO (08:37)
--- NOTE | 2024-02-26 08:46 | W.PN.CARDCBS ---
Addendum entered and electronically signed by Allen Barton DO 02/26/24 09:16:
I saw and examined the patient.
The Air Control Electronics Operator's note was reviewed and I agree with the note.
Comment:
Plan:
Echo reviewed with pt and stable.
No further bradycardia
Outpt follow up with Dr Rush, to consider monitor at that time.
Please recall if needed.
Original Note:
Today's Communication / Plan
-
Replete K. Check mag
Echo stable
No further bradycardia
Impression / Plan
-
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 Rush in 2019
Assessment:
Presentation with abd pain
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
Sinus bradycardia
PVCs
HTN
HLD
BPH
ECHO 2019: normal EF, normal regional wall motion, MAC, mild MR, mildly dilated aortic root, sinus of valsalva 4.0cm
ECHO 02/25/24: EF 65 to 70%, no regional wall motion abnormalities noted, mild concentric LVH, mild MR, no significant change compared to prior
Plan:
-Patient presents with abd pain and by imaging with evidence of small celiac artery dissection. plan for conservative mgmt per vascular and general surgery at this time. diet advancement per surgery
-cardiology consulted due to bradycardia on tele 02/23 into 02/24. overnight on review of tele, no further bradycardia, however with occasional PVCs at times couplets
-replete K. check mag
-he is asymptomatic
-echo with results as above, reviewed results with patient 02/25
-TSH WNL
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 He is tentatively planned for surgery as an outpatient Thursday 03/01
-d/w nursing
Progress Note - Fax Machine Operator
Subjective
Date of Service: February 26, 2024
Denies abdominal pain. Reports left shoulder and back pain which he states is chronic
Objective
Labs:
02/26/24 04:16
02/26/24 04:16
Labs
Hgb 12.6 g/dL (13.0-18.0) L 02/26/24 04:16
Hct 35.3 % (39.0-52.0) L 02/26/24 04:16
Plt Count 135 10^3/uL (130-400) 02/26/24 04:16
Sodium 137 mmol/L (135-145) 02/26/24 04:16
Potassium 3.5 mmol/L (3.5-5.1) 02/26/24 04:16
BUN 10 mg/dl (9-20) 02/26/24 04:16
Creatinine 0.7 mg/dL (0.7-1.3) 02/26/24 04:16
Glucose 92 mg/dl (70-99) 02/26/24 04:16
Troponins
02/24/24
08:59
Troponin I < 0.012
Vital Signs and I&O:
Vital Signs
Temp Pulse Resp BP Pulse Ox
97.8 F 94 12 131/88 96
02/26/24 07:34 02/26/24 06:01 02/26/24 06:01 02/26/24 06:01 02/26/24 06:01
Vital Signs
Temp Pulse Resp BP Pulse Ox
97.8 F 94 12 131/88 96
02/26/24 07:34 02/26/24 06:01 02/26/24 06:01 02/26/24 06:01 02/26/24 06:01
Intake & Output
02/24/24 02/25/24 02/26/24 02/27/24
07:59 07:59 07:59 07:59
Intake Total 1300 / 1300
Output Total 775 / 775
Balance 1300 / 1300 -775 / -775
Physical Exam
Physical Exam
GEN: No distress, awake, alert, oriented x3. Sitting in chair
HEENT: supple, anicteric, mmm, EOMI
LUNGS: CTA bilaterally, no wheezes/rales
CV: Reg, S1/S2, no murmur
ABD: soft, BS+, NT/ND
EXT: No cyanosis, clubbing, edema
NEURO: Gross non-focal
SKIN: Warm, pink, dry. No rash
[2024-02-26 09:24] LABS: Magnesium 1.4 mg/dl (1.6-2.3)
[2024-02-26] MEDS: MAGNESIUM SULFATE 50 IV (10:24)
[2024-02-26] MEDS: KCL 20 MEQ PO (10:24)
--- NOTE | 2024-02-26 11:09 | W.PN.GS2 ---
Addendum entered and electronically signed by Anthony Castanon MD 02/26/24 16:17:
Patient seen and examined with nurse practitioner in follow-up this afternoon. Agree with documented progress note.
Patient offers no complaints. Tolerating dietary intake. No abdominal pain.
AFVSS
ABD: Soft, nondistended, nontender on palpation
Assessment/plan: 83-year-old male presenting with acute celiac artery dissection and abdominal pain with small bowel edema which subsequently has resolved
No signs suggestive of any small bowel compromise or threat
Continue with regular diet as tolerated
Stable for discharge from a general surgical standpoint
Patient will be following up with vascular surgery as outpatient.
Original Note:
Today's Communication / Plan
-
Advance diet
Dispo as per primary team
Assessment / Plan
-
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
AFVSS, abd exam benign
Labs unremarkable
Vascular surgery plan is for expectant mgmt
No plans for surgery from GS standpoint
Adv to regular diet
Clear for d/c from surgical standpoint
Subjective Data
-
Date of Service: February 26, 2024
Patient seen and examined. Sitting by the window in the family waiting room. Denies pain. Passing flatus. Denies hemathochezia.
Objective Data
-
Intake and Output
02/25/24 02/26/24 02/27/24
06:59 06:59 06:59
Intake Total 1300 / 1300
Output Total 775 / 775
Balance 1300 / 1300 -775 / -775
Intake:
IV fluids (Total) 1200 / 1200
IV piggybacks 100 / 100
Output:
Urine, Voided 775 / 775
Other:
Number of approximated MODERATE 2 1
amounts of urine
Number of approximated LARGE 1
amounts of urine
Vital Signs
Temp Pulse Resp BP Pulse Ox
97.8 F 68 15 141/95 96
02/26/24 07:34 02/26/24 10:00 02/26/24 08:29 02/26/24 08:29 02/26/24 08:29
Lab Results
02/26/24 04:16
02/26/24 04:16
Calcium 9.6 mg/dl (8.4-10.2) 02/26/24 04:16
Magnesium 1.4 mg/dl (1.6-2.3) L 02/26/24 04:16
Total Bilirubin 1.3 mg/dl (0.2-1.3) 02/24/24 08:59
AST 31 U/L (17-59) 02/24/24 08:59
ALT 26 U/L (0-50) 02/24/24 08:59
Alkaline Phosphatase 58 U/L (38-126) 02/24/24 08:59
Total Protein 7.1 g/dl (6.3-8.2) 02/24/24 08:59
Albumin 4.3 g/dl (3.5-5.0) 02/24/24 08:59
Physical Exam
-
NAD
ABD soft, nt, nd, crab meat processor
--- NOTE | 2024-02-26 11:42 | PTCARENOTE ---
Patient AAOx3. Patient out of bed to chair for breakfast and ambulating in hallway. Patient denies any pain or discomfort. Patient advanced to regular diet for lunch. VS stable.
--- NOTE | 2024-02-26 13:17 | W.PN.HOSP.TC ---
Today's Communication/Plan
-
Discharge today
Assessment / Plan
Assessment / Plan
Physical Exam
General: No Apparent Distress
HEENT: Normocephalic
Respiratory: Clear to Auscultation Bilaterally
Cardiac: S1/S2 and Regular Rhythm
GI: Soft, Normal Bowel Sounds and Minimally Tender (epigastric)
Musculoskeletal: No Cyanosis and No Edema
Skin: Warm and Dry
Neuro: Awake, Alert and AO x 3
Psych: Calm and Intact Judgment/Insight

Assessment/Plan
Presentation with Abdominal Pain
Concern for Bowel Ischemia on CT Imaging
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
-Transfer to tele
-Vascular surgery and colorectal surgery on board, appreciate evaluation and recommendations -- watchful waiting for now
-Clear Liquids Diet for now, as per surgery
-LR IV fluids
-Discussed on 02/25/24 with vascular surgery and general surgery regarding need for antibiotics and from their standpoints, there is no need for antibiotics. Discontinued Cefepime and Flagyl.
-Okay to do Aspirin as per vascular surgery
-Blood consent obtained in the ER, in case patient needed a blood transfusion
Sinus Bradycardia
-Baseline heart rate in the 60s, but was in the 40s on 02/24/24
-Continue cardiac monitoring/telemetry monitoring in IMU
-Echo
-TSH 4.42
-Appreciate cardiology
-Follow-up with veterinary milk specialist Dr. Rush outpatient, can consider heart monitor at that time
Hypomagnesemia
-Magnesium replaced
-Recheck
-Recheck CBC, BMP and Magnesium outpatient
HTN - Resume home medications
HLD
BPH
Status post open LEFT inguinal hernia repair as a teenager c/b recurrence s/p robotic repair with mesh by Dr. Ramires in 06/2020
DVT PPx: SCDs
Code Status: DNR (confirmed by patient at the time of admission)
More than 30 minutes spent in discharge including
Final examination of the patient
Summarizing hospital stay
Instructions for continuing care to all relevant caregivers
Preparation of discharge records, prescriptions, and referral forms
Total time spent (in minutes): 39
Anticipated Discharge: Today
Subjective/Interval History
-
Date of Service: February 26, 2024
Patient was seen and examined. He reported no abdominal pain, dizziness or any other complaints.
Objective Data
-
Labs:
Laboratory Results
02/26/24
04:16
WBC 6.2
Hgb 12.6 L
Hct 35.3 L
Plt Count 135
Sodium 137
Potassium 3.5
Chloride 106
Carbon Dioxide 25
BUN 10
Creatinine 0.7
Glucose 92
Calcium 9.6
Vital Signs:
Vital Signs
Temp Pulse Resp BP Pulse Ox
97.6 F 68 15 141/95 96
02/26/24 12:01 02/26/24 10:00 02/26/24 08:29 02/26/24 08:29 02/26/24 08:29
I&O
02/25/24 02/26/24 02/27/24
06:59 06:59 06:59
Intake Total 1300 / 1300
Output Total 775 / 775
Balance 1300 / 1300 -775 / -775
--- NOTE | 2024-02-26 14:52 | PTCARENOTE ---
Patient tolerated regular diet. Offers no complaints at this time. VS stable.
[2024-02-26 15:18] LABS: Magnesium 1.8 mg/dl (1.6-2.3)
--- NOTE | 2024-02-26 16:09 | W.DS.TRANS ---
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
-
Discharge Instructions:
Discharge Diagnosis/Procedures Presentation with Abdominal Pain
Concern for Bowel Ischemia on CT Imaging
Small dissection of the celiac artery with mild
aneurysmal dilatation
Sinus Bradycardia
Hypomagnesemia
Hypertension
Hyperlipidemia
Benign Prostatic Hyperplasia
Status post open LEFT inguinal hernia repair as
a teenager c/b recurrence s/p robotic repair
with mesh by Dr. Ramires in 06/2020
Diet Low Fat,Low Cholesterol
Activity As tolerated
Blood Work Recheck CBC, CMP and Magnesium within 1 week
with your primary care provider's office
Instructions:
Stand-Alone Forms:
Changes to Home Medications: Yes
Discharge Medications:
DC Medications w/original date entered in [facility]
aspirin 81 mg tablet,delayed release 81 mg PO DAILY Blood clot prevention/tx 08/05/12
finasteride 5 mg tablet 5 mg PO DAILY prostate issue 08/05/12
lisinopril 20 mg tablet 20 mg PO DAILY Blood pressure 08/05/12
simvastatin 20 mg tablet 20 mg PO HS High cholesterol 08/05/12
cyanocobalamin (vitamin B-12) 1,000 mcg tablet 1,000 mcg PO Q48H Supplement 01/08/20
acetaminophen 325 mg tablet (Tylenol) 650 mg PO Q6HPRN PRN mild pain 02/04/24
amlodipine 5 mg tablet 5 mg PO DAILY Blood Pressure 02/04/24
magnesium oxide 400 mg PO DAILY #7 caps 02/26/24
potassium chloride 10 mEq tablet,extended release (Klor-Con) 10 meq PO DAILY #7 tabs 02/26/24
Home Medication Changes
Magnesium Oxide and Potassium Chloride are new medications.
Pending Results: Yes
Additional Pending Results:
Final results of blood cultures from hospitalization
Total time spent discharging patient (in min): 39
== END 2024-02-26 16:49 | disposition home or self-care (01) | DRG 299 ==
LOC: IMU 12:10
PROVIDERS: ADMITTING PHYSICIAN Hospitalist; CONSULT PHYSICIAN Surgery; CONSULT PHYSICIAN Surgery Vascular Surgery; EMERGENCY PHYSICIAN Emergency Medicine; FAMILY PHYSICIAN Student in an Organized Health Care Education/Training Program; OTHER PHYSICIAN Internal Medicine Cardiovascular Disease
DX: I77.79 Dissection of other specified artery (principal); K55.019 Acute (reversible) ischemia of small intestine, extent unspecified; I11.9 Hypertensive heart disease without heart failure; Z66 Do not resuscitate; I45.10 Unspecified right bundle-branch block; N40.0 Benign prostatic hyperplasia without lower urinary tract symptoms; E83.42 Hypomagnesemia; E78.00 Pure hypercholesterolemia, unspecified; Z88.0 Allergy status to penicillin; Z79.82 Long term (current) use of aspirin; Z87.891 Personal history of nicotine dependence; Z82.49 Family history of ischemic heart disease and other diseases of the circulatory system
CPT/HCPCS: 71275; 74174; 80048; 80053; 81003; 83605; 83615; 83690; 83735; 84443; 84484; 85025; 87040; 93005; 93306; 96361; 96374; 96375; 96376; 99291; Q9967

== ENCOUNTER → 2024-03-22 06:29 | Outpatient (REF) | payer MEDICARE, BC, SELFPAY ==
[2024-03-22 10:43] LABS: % Basophils 0.4 % (0-2); % Immature Granulocytes 0.2 % (0-0.5); % Lymphocytes 41.4 % (20.5-51.1); % Monocytes 7.2 % (1.7-9.3); % Neutrophils 49.8 % (42.2-75.2); Absolute Eosinophils 0.1 10^3/uL (0-0.7); Absolute Monocytes 0.4 10^3/uL (0.1-0.6); Absolute Neutrophils 2.4 10^3/uL (1.4-6.5); Hematocrit 37.1 % (39.0-52.0); Hemoglobin 12.9 g/dL (13.0-18.0); Mean Corp Hgb Conc. 34.8 g/dL (33.0-37.0); Mean Corpuscular Hgb 34.3 pg (27.0-31.0); Mean Corpuscular Volume 98.7 fL (80.0-94.0); Mean Platelet Volume 11.3 fL (7.4-10.4); Nucleated Red Blood Cells % 0 % (-); Platelet Count 146 10^3/uL (130-400); Red Blood Cell Count 3.76 10^6/uL (4.70-6.10); Red Cell Dist. Width 13.6 % (11.5-14.5); White Blood Cell Count 4.9 10^3/uL (4.8-10.8)
== END ==
LOC: HWLAB 06:29
PROVIDERS: ATTENDING PHYSICIAN Student in an Organized Health Care Education/Training Program
DX: D64.9 Anemia, unspecified (principal)
CPT/HCPCS: 36415; 85025

== ENCOUNTER → 2024-04-06 07:49 | Outpatient (REF) | payer MEDICARE, BC, SELFPAY | LOC: HWRAD 07:49 | PROVIDERS: ATTENDING PHYSICIAN Registered Nurse; FAMILY PHYSICIAN Student in an Organized Health Care Education/Training Program | DX: I77.79 Dissection of other specified artery (principal) | CPT/HCPCS: 74174; Q9967 ==

== ENCOUNTER → 2024-09-30 06:21 | Outpatient (REF) | payer MEDICARE, BC, SELFPAY ==
[2024-09-30 11:51] LABS: PSA, Total - Diagnostic 0.43 ng/ml (0.0-4.0)
== END ==
LOC: HWLAB 06:21
PROVIDERS: ATTENDING PHYSICIAN Specialist; FAMILY PHYSICIAN Student in an Organized Health Care Education/Training Program
DX: R97.20 Elevated prostate specific antigen [PSA] (principal)
CPT/HCPCS: 84153

== ENCOUNTER → 2025-01-31 06:26 | Outpatient (REF) | payer MEDICARE, BC, SELFPAY | LOC: HWRAD 06:26 | PROVIDERS: ATTENDING PHYSICIAN Student in an Organized Health Care Education/Training Program | DX: M25.552 Pain in left hip (principal); M54.50 Low back pain, unspecified | CPT/HCPCS: 72110; 73523 ==

== ENCOUNTER → 2025-05-04 06:25 | Outpatient (REF) | payer MEDICARE, BC, SELFPAY ==
[2025-05-04 09:43] LABS: Blood Urea Nitrogen 20 mg/dl (9-20); Calcium 9.2 mg/dl (8.4-10.2); Carbon Dioxide 25 mmol/L (22-30); Chloride 109 mmol/L (98-107); Glucose 112 mg/dl (70-99); Potassium 4.2 mmol/L (3.5-5.1); Sodium 138 mmol/L (135-145); eGFR > 60.00
== END ==
LOC: HWLAB 06:25
PROVIDERS: ATTENDING PHYSICIAN Surgery Vascular Surgery; FAMILY PHYSICIAN Family Medicine
DX: I77.79 Dissection of other specified artery (principal)
CPT/HCPCS: 36415; 80048

== ENCOUNTER → 2025-05-06 14:28 | Outpatient (REF) | payer MEDICARE, BC, SELFPAY | LOC: RAD 14:28 | PROVIDERS: ATTENDING PHYSICIAN Surgery Vascular Surgery | DX: I77.79 Dissection of other specified artery (principal) | CPT/HCPCS: 74174; Q9967 ==

== ENCOUNTER 2025-06-24 09:42 | Emergency (ER) | payer MEDICARE, BC, SELFPAY ==
[2025-06-24 09:48] VITALS: BP 163/86
[2025-06-24 12:35] VITALS: BMI 25.2
[2025-06-24] MEDS: VALIUM 5 MG PO (12:38)
[2025-06-24] MEDS: TORADOL 30 MG IM (12:38)
--- NOTE | 2025-06-24 12:41 | ED.GENMED ---
History of Present Illness
General
Chief Complaint: Back Pain
Source: patient
Exam Limitations: none
Time Seen by Provider: 06/24/25 11:33
History of Present Illness
History of Present Illness:
84-year-old male sudden low back pain after bending over to put in lites 3 days ago. Pain is progressed. No weakness. No abdominal pain. No bowel or bladder issues. No distal numbness tingling or weakness. He states this feels like his
previous herniated disc. No pain management at home.
Past History
Past History
ED Past Medical History: HTN
ED Past Surgical History: Other (Hernia repair)
Social History
Tobacco: Non-smoker
Alcohol: None
Drug: None
Personal: Other
Living: other
Employment: Other
Family History
Family History: Other
Review of Systems
Review of Systems
All Other Systems: Not applicable
Constitutional: Denies fever
ABD/GI: Reports no symptoms
Neurological: Reports no symptoms
Phy Exam
Physical Exam
Physical Exam:
GENERAL: Alert and oriented in no apparent distress
CARDIAC: Regular rate and rhythm without any obvious murmurs.
LUNGS: Clear breath sounds,normal
ABDOMEN: Soft, without focal tenderness or distention
NEUROLOGICAL: Alert and oriented , grossly non-focal. Good lower extremity strength. Plantar dorsiflexion of the foot. Able to ambulate without difficulty.
SKIN: Warm and dry, no rash or lesion, no discoloration, skin intact.
MUSCULOSKELETAL: No edema,no deformity.Good color. Diffuse mild paralumbar tenderness. No spinal tenderness. No swelling or erythema. No CVA tenderness. Able to stand and walk. Decreased flexion at the hip. Negative straight leg raising.
PSYCH: Normal and appropriate interaction.
Course
Orders/Labs/Results
Orders:
Orders
06/24/25 09:52
Lumbar Spine Complete, 4 View [CR Lumbar Spine Comp Min 4 Vw*] Urgent
Comment:
Reason For Exam: lower back pain, hx of herniated discs
06/24/25 09:53
Electrocardiogram (*1) Urgent
Reason for Study: Vertigo / Dizzy
EKG- Treatment ONCE
06/24/25 12:31
Diazepam [Valium] 5 mg PO NOW STA
Ketorolac [Toradol] 30 mg IM NOW STA
Vital Signs
Initial and Last Documented VS:
Initial Vital Signs
Temp Pulse Resp BP Pulse Ox
97.4 F 59 16 163/86 99
06/24/25 09:48 06/24/25 09:48 06/24/25 09:48 06/24/25 09:48 06/24/25 09:48
Last Documented Vital Signs
Temp Pulse Resp BP Pulse Ox
97.4 F 59 16 163/86 99
06/24/25 09:48 06/24/25 09:48 06/24/25 09:48 06/24/25 09:48 06/24/25 12:42
MDM/Problems Addressed
Differential Diagnosis Includes:
Symptom complex all consistent with a musculoskeletal low back pain. Cannot rule out herniated disc. Nothing acute neurosurgically. Good strength. Good bowel and bladder issue. Pain management muscle relaxers and follow-up. Discussed with
patient.
*Radiology
Radiology exam reviewed: radiology read reviewed (Mild L4 compression fracture without significant change. Degenerative changes.)
*Pulse Oximetry
SaO2: 99
Oxygen Mode of Delivery: Room air
Patient hypoxic: no
*Critical Care Note
Total Time (30-74mins, 75-104mins- exclusive of procedures): Not Applicable
Data Reviewed
Review of Other/Old Records Reveals: Radiology Studies
ED Attending Note
-
Portions of this chart may have been created with voice recognition software.� Occasional wrong word or��sound alike� substitutions may have occurred due to the inherent limitations of voice recognition software.
Discharge Plan
Departure
Patient Disposition: Home (Routine Discharge)
Date of Disposition: 06/24/25
Time of Disposition: 12:44
Patient with high blood pressure during this ER visit?: Yes
Discharge Problem:
Low back strain, possible herniated disc
Instructions: Low Back Pain (DC), BLOOD PRESSURE
Prescriptions:
New
diazepam [Valium] 5 mg tablet
5 mg PO Q8H PRN (Reason: muscle spasm) Qty: 14 0RF
No Action
lisinopril 20 MG tablet
20 mg PO DAILY
aspirin 81 MG tablet,delayed release (DR/EC)
81 mg PO DAILY
simvastatin 20 MG tablet
20 mg PO HS
finasteride 5 MG tablet
5 mg PO DAILY
cyanocobalamin (vitamin B-12) 1,000 MCG tablet
1,000 mcg PO Q48H
acetaminophen [Tylenol] 325 mg Tablet
650 mg PO Q6HPRN PRN (Reason: mild pain)
amlodipine 5 mg Tablet
5 mg PO DAILY
potassium chloride [Klor-Con 10] 10 mEq tablet extended release
10 meq PO DAILY Qty: 7 0RF
magnesium oxide 400 mg magnesium capsule
400 mg PO DAILY Qty: 7 0RF
Referrals:
Marianna Villar PA-C [Family Provider, Family Practice] - Follow up in 2-3 days
Activity Restrictions/Additional Instructions:
Tylenol for pain. Can add Advil or Motrin. Take with food.
Valium is a muscle relaxer. This will make you drowsy however. This prescription was sent to your pharmacy
Interventions
Interventions:
*Risk Screen - Suicide Last Done: 06/24/25 09:48
*General Assessment Last Done: 06/24/25 12:07
*Neglect/Abuse Screening Last Done: 06/24/25 12:07
*ED- Fall Risk Assessment Last Done: 06/24/25 12:07
*ED COVID-19 Vaccine History Last Done: 06/24/25 12:07
*ED Influenza Vaccine History Last Done: 06/24/25 12:07
*Nursing Disposition Last Done: 06/24/25 13:09
ED-Musculoskeletal Assessment Last Done: 06/24/25 10:57
Discharge Date and Time
Discharge Date/Time: 06/24/25 13:09
Print Language: IRISH
== END 2025-06-24 13:09 | disposition home or self-care (01) ==
LOC: EMR 09:42
PROVIDERS: EMERGENCY PHYSICIAN Emergency Medicine; FAMILY PHYSICIAN Student in an Organized Health Care Education/Training Program
DX: S39.012A Strain of muscle, fascia and tendon of lower back, initial encounter (principal); X50.1XXA Overexertion from prolonged static or awkward postures, initial encounter; I10 Essential (primary) hypertension
CPT/HCPCS: 99283; 96372; 72110; 93005